=== PATIENT | female | born 1945 | race Caucasian/White ===

== ENCOUNTER → 2019-06-11 | Outpatient (CLI) | payer MEDICARE ==
--- NOTE | 2019-06-11 12:28 | FL ---
EXAMINATION TYPE: FL barium swallow DATE OF EXAM: 06/11/2019 CLINICAL HISTORY: Dysphagia, reflux, hiatal hernia, and globus sensation TECHNIQUE: A double contrast esophagram is performed utilizing air and barium. A total of 52 second s of fluoroscopic time was utilized during procedure. 23 fluoroscopic images were saved on the examin ation. COMPARISON: None FINDINGS: The esophagus shows slightly abnormal motility with blunted secondary wave and normal empty ing into the stomach. Small hiatal hernia seen. No stricture is evident. Minimal gastroesophageal ref lux is noted. 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 On the lateral vie w note is made of repeated penetration just above the vocal cords. Therefore exam was terminated with out supine imaging due to the risk of aspiration. Upright images were performed in frontal, oblique, and lateral positions. IMPRESSION: 1. Repeated deep laryngeal penetration. Therefore the examination did not include supine imaging and modified barium swallow examination is recommended with speech therapy. 2. Small hiatal hernia, findings of mild presbyesophagus, and mild degree gastroesophageal reflux to level of the distal third of the esophagus. 3. 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
== END | disposition home or self-care (01) ==
LOC: RADUSWWP 10:58
PROVIDERS: ATTEND Otolaryngology
DX: K44.9 Diaphragmatic hernia without obstruction or gangrene (principal); K21.9 Gastro-esophageal reflux disease without esophagitis; K22.8 Other specified diseases of esophagus
CPT/HCPCS: 74220

== ENCOUNTER → 2019-06-28 | Outpatient (CLI) | payer MEDICARE | END | disposition home or self-care (01) | LOC: RADFLMAIN 11:54 | PROVIDERS: ATTEND Otolaryngology | DX: Z53.9 Procedure and treatment not carried out, unspecified reason (principal) ==

== ENCOUNTER → 2019-07-06 | Outpatient (CLI) | payer MEDICARE ==
--- NOTE | 2019-07-06 17:30 | FL ---
MODIFIED SWALLOW / DEGLUTITION STUDY DATE OF EXAM: 07/06/2019 CLINICAL HISTORY: 73-year-old female Dysphagia. Foods sticking in the throat. TECHNIQUE: Deglutition study is performed utilizing thin liquid barium, honey and nectar thick liqui d barium, barium thick pudding, and barium coated cracker. Total fluoroscopy time: 2 minutes 44 seconds. Total images: None. Real-time fluoroscopy support was provided to speech pathology. COMPARISON: None. FINDINGS: The oral and pharyngeal phases show satisfactory initiation and propagation with all modalities teste d. Normal mastication is seen with solid modalities tested. There is persistent transient penetrati on with thin liquids and one episode of transient penetration with solids. No aspiration is seen. The re is marked cricopharyngeal hypertrophy. Intraesophageal reflux is seen suggesting underlying dysmot ility. No significant pharyngeal residue was appreciated. IMPRESSION: 1. Consistent transient penetration with thin liquids and one episode of transient penetration with s olids. No aspiration seen. 2. Marked cricopharyngeal hypertrophy. This can be seen as a protective mechanism for long-standing, severe gastroesophageal reflux. It can also become symptomatic during swallows. 3. Underlying esophageal dysmotility is suggested given visualization of some intraesophageal reflux on this study. Please refer to speech therapist notes for further details if necessary.
== END | disposition home or self-care (01) ==
LOC: RADFLMAIN 11:14
PROVIDERS: ATTEND Otolaryngology
DX: K21.9 Gastro-esophageal reflux disease without esophagitis (principal)
CPT/HCPCS: 74230

== ENCOUNTER → 2021-04-05 | Outpatient (CLI) | payer MEDICARE | END | disposition home or self-care (01) | LOC: LABWHC1 12:01 | PROVIDERS: ATTEND Psychiatry & Neurology Pain Medicine | DX: R51.0 Headache with orthostatic component, not elsewhere classified (principal) | CPT/HCPCS: 36415; 83735 ==

== ENCOUNTER → 2021-04-13 | Outpatient (CLI) | payer MEDICARE ==
--- NOTE | 2021-04-15 12:22 | CT ---
EXAMINATION TYPE: CT cervical spine wo con DATE OF EXAM: 04/13/2021 COMPARISON: None HISTORY: neck pain, no recent injury CT DLP: 416 mGycm CONTRAST: None CT of the cervical spine is performed in the axial plane at 2 mm thick sections. Reconstructed image s in the coronal, and sagittal plane are reviewed on the computer. No acute fractures are evident. There is a grade 1 spondylolisthesis of C4 anteriorly on C5. Loss of disc height is present C4-5 C5-6. Vertebral body heights are preserved. No spinal canal stenosis is evident Uncovertebral joint hypertrophy is present on the left at C3-4 with. Foraminal stenosis. Severe jason inal stenosis is also present due to uncovertebral joint hypertrophy on the left at C4-5. Moderate to severe bilateral foraminal narrowing is present C5-6. IMPRESSIONS: 1. 1 spondylolisthesis of C4 anteriorly on C5. 2. Degenerative disc changes of the cervical spine most notably C5-6. 3. Uncovertebral joint hypertrophy contributing to foraminal narrowing, greater on the left discussed above.
== END | disposition home or self-care (01) ==
LOC: RADCTMAIN 16:50
PROVIDERS: ATTEND Psychiatry & Neurology Neurology
DX: M50.323 Other cervical disc degeneration at C6-C7 level (principal); M47.812 Spondylosis without myelopathy or radiculopathy, cervical region; M43.12 Spondylolisthesis, cervical region; M99.71 Connective tissue and disc stenosis of intervertebral foramina of cervical region
CPT/HCPCS: 72125

== ENCOUNTER → 2022-04-23 | Outpatient (CLI) | payer MEDICARE ==
[2022-04-23 18:40] LABS: ALT 23 U/L (8-44); AST 18 U/L (13-35); Albumin 4.1 g/dL (3.8-4.9); Albumin/Globulin Ratio 1.81 (1.60-3.17); Alkaline Phosphatase 117 U/L (41-126); Blood Urea Nitrogen 15.9 mg/dL (9.0-27.0); Calcium 9.4 mg/dL (8.7-10.3); Carbon Dioxide 25.8 mmol/L (20.0-27.5); Chloride 105 mmol/L (96-109); Chol/HDL Ratio 2.58 Ratio; Globulin 2.3 g/dL (1.6-3.3); Glucose 258 mg/dL (70-110); LDL Cholesterol,Calculated 41.5 mg/dL (0.0-131.0); Non-African American GFR(CKD) 79.4 (60.0-200.0); Potassium 4.1 mmol/L (3.5-5.5); Sodium 143 mmol/L (135-145); Total Protein 6.4 g/dL (6.2-8.2)
== END | disposition home or self-care (01) ==
LOC: LABWHC1 10:34
PROVIDERS: ATTEND Internal Medicine Endocrinology, Diabetes & Metabolism
DX: E11.65 Type 2 diabetes mellitus with hyperglycemia (principal)
CPT/HCPCS: 36415; 80053; 80061; 82043; 82570; 83036; 84443

== ENCOUNTER → 2023-03-25 | Outpatient (CLI) | payer MEDICARE ==
--- NOTE | 2023-03-26 07:06 | BD ---
EXAMINATION TYPE: Axial Bone Density DATE OF EXAM: 03/25/2023 CLINICAL HISTORY: 77 years old Female. ICD-10 CODE: N95.1 MENOPAUSAL AND FEMALE CLIMACTERIC STATES Height: 5 ft 6 in Weight: 192 FRAX RISK QUESTIONS: Alcohol (3 or more units per day): no Family History (Parent hip fracture): no Glucocorticoids (More than 3mos): no (Ex: prednisone, prednisolone, methylprednisolone, dexamethasone, and hydrocortisone). History of Fracture in Adulthood: yes Secondary Osteoporosis: 1. Type 1 Diabetes: no 2. Hyperthyroidism: no 3. Menopause before 45: yes 4. Malnutrition: yes 5. Chronic liver disease: no Rheumatoid Arthritis: no Current Tobacco Use: no RISK FACTORS HISTORY OF: Surgery to Spine/Hip(right/left)/Wrist (right/left): no Family History of Osteoporosis: no Active: no Diet low in dairy products/other sources of calcium: no Postmenopausal woman: yes Take estrogen and/or progesterone medications: none now Lost more than 2 inches in height since high school: yes Frequent falls: no Poor Health: good Hyperparathyroidism: no Adrenal Insufficiency: no MEDICATIONS: Additional Medications: meds for cholesterol, trulicty, Glipizide, Lantus, naproxen, Enalapril, ate nolol, vitamins, Additional History: EXAM MEASUREMENTS: Bone mineral densitometry was performed using the [employer] System. Bone mineral density as measured about the Lumbar spine is: ----- L1-L4(G/cm2): 1.330 T Score Values are as follows: ----- L1: 1.9 ----- L2: -0.2 ----- L3: 0.7 ----- L4: 2.6 ----- L1-L4: 1.3 Z Score Values are as follows: ----- L1: 2.9 ----- L2: 0.8 ----- L3: 1.7 ----- L4: 3.6 ----- L1-L4: 2.3 Bone mineral density has: increased 1.1 % since study of: 2010 Bone mineral density about the R hip (g/cm2): 0.739 Bone mineral density about the L hip (g/cm2): 0.750 T Score values are as follows: -----R Neck: -2.2 -----L Neck: -2.1 -----R Total: -1.6 -----L Total: -1.1 Z Score values are as follows: -----R Neck: -0.7 -----L Neck: -0.6 -----R Total: -0.4 -----L Total: 0.1 Bone mineral density has: decreased -16.5 % since study of: 2010 FRAX%s: The graph provided illustrates a 14.0% chance for a major osteoporotic fx and a 3.8 % chance for the hips probability for fx in 10 years time. IMPRESSION: Osteopenia (T Score between -2.5 and -1). There is slightly increased risk of fracture and the patient may be considered for treatment. Re-Screen 2-5 years. NOTE: T-SCORE=SD OF THE YOUNG ADULT MEAN.
== END | disposition home or self-care (01) ==
LOC: RADBDWWP 12:42
PROVIDERS: ATTEND Internal Medicine
DX: M85.89 Other specified disorders of bone density and structure, multiple sites (principal); N95.1 Menopausal and female climacteric states
CPT/HCPCS: 77080